=== PATIENT | female | born 2000 | race Hispanic/Latino ===

== ENCOUNTER 2025-03-08 21:51 | Emergency (ER) | payer BC ==
[~2025-03-08] VITALS: Ht 152.4 cm; Wt 67.6 kg
--- NOTE | 2025-03-08 22:38 | ERN ---
ED Note History of Present Illness Stated Complaint: ABD PAIN, LEFT LEG PAIN; VAGINAL BLEEDING, 6 WKS Chief Complaint: OB<20 weeks gest. Time Seen by MD: 22:03 Time Seen by Midlevel: 22:05 Dictation: 24-year-old female coming in with complaints of left lower quadrant pain for the last couple of days. Patient states she is six weeks . Denies having any vaginal pain vaginal bleeding or vaginal discharge. However patient states she has been seen 4 times already for the same complaint discharge her. Patient states she is concerned for having an ectopic . LMP states was in January 01, and states she is . Allergies: Coded Allergies: No Known Allergies (Unverified Allergy, Unknown, 03/08/25) Past Medical History Past Medical History: No Pertinent History Surgical History: None LMP: Jan 22, 2025 : 1 Para: 0 Aborts: 0 Review of System Dictation MDM: 24-year-old female coming in with complaints of left lower quadrant pain for the last couple of days. Patient states she is six weeks . Denies having any vaginal pain vaginal bleeding or vaginal discharge. However patient states she has been seen 4 times already for the same complaint discharge her. Patient states she is concerned for having an ectopic . LMP states was in January 01, and states she is . Differential diagnosis: Rectal , UTI, Rationale: Tests considered and ordered secondary to shared decision making include: Previous outside records reviewed: Old ER visits. Risk of complication and/or morbidity or mortality of patient management: None Medications-Per medication reconciliation Need for hospitalization: Patient does not meet criteria for hospitalization. Need for emergency major/minor surgery: No There are no social concerns with this patient. Prescription drug management Prescriptions will include symptomatic care Patient's prior external medical records from other ER visits were reviewed by me as indicated. Prior testing and results from previous visits were reviewed. Prior tests were taken into account with medical decision making and resource utilization, independent historian/historians were used to obtain complete medical history. I independently interpreted the test that were performed, results were reviewed by me and considered findings on radiology if ordered. Medical management and examination interpretation discussions were had by me with other qualified healthcare professionals as indicated for the patient's care. Review of Systems: was completed Initial Vital Sign VS Vital Signs Date Time Temp Pulse Resp B/P (MAP) Pulse Ox O2 Delivery O2 Flow Rate FiO2 03/08/25 21:53 99.3 78 20 123/78 97 Room Air 03/08/25 22:08 0 21 Physical Exam Dictation General: awake, alert, NAD Head/Face: Normocephalic, atraumatic Eyes: PERRL, EOMI, vision at baseline ENT: oral cavity clear, TMs clear, no signs of infection Neck: Trachea midline, supple, no nuchal rigidity Cardiovascular: RRR, normal S1/S2, No MRGs, no JVD Respiratory: CTAB, no respiratory distress, No rales or wheezes Abdomen: Soft, non-tender, non-distended, normal bowel sounds, no guarding or rebound. Skin: Warm, dry, normal turgor, no rash MS/Extremity: Pulses equal, no cyanosis, neurovascular intact, FROM Neuro: COAx4, GCS 15, strength 5/5, CN 2-12 intact, normal cerebellar exam, normal gait, Psych: Normal behavior, mood, and affect normal Results (Laboratory/Radiology) Laboratory/Radiology Laboratory Tests Test 03/08/25 22:21 03/08/25 22:44 White Blood Count 13.0 K/uL (4.8-10.8) H Red Blood Count 3.90 MIL/uL (4.00-5.50) L Hemoglobin 12.1 g/dL (12.0-16.0) Hematocrit 35.9 % (36-48) L Mean Corpuscular Volume 92.1 fL (79-99) Mean Corpuscular Hemoglobin 31.0 pg (27.0-33.0) Mean Corpuscular Hemoglobin Concent 33.7 g/dL (32.0-36.0) Red Cell Distribution Width 12.4 % (11.0-15.5) Platelet Count 445 K/uL (130-400) H Mean Platelet Volume 7.8 fL (7.5-10.5) Immature Granulocyte % (Auto) 0.5 % (0-1) Neutrophils (%) (Auto) 54.5 % (40.0-77.0) Lymphocytes (%) (Auto) 39.6 % (21.0-51.0) Monocytes (%) (Auto) 4.0 % (3.0-13.0) Eosinophils (%) (Auto) 0.8 % (0.0-8.0) Basophils (%) (Auto) 0.6 % (0.0-5.0) Neutrophils # (Auto) 7.1 K/uL (1.8-7.7) Lymphocytes # (Auto) 5.1 K/uL (1.0-4.8) H Monocytes # (Auto) 0.5 K/uL (0.1-1.0) Eosinophils # (Auto) 0.11 K/uL (0.00-0.70) Basophils # (Auto) 0.08 K/uL (0.00-0.20) Absolute Immature Granulocyte (auto 0.07 K/uL (0-1) Nucleated Red Blood Cells 0.0 % (0.0-0.19) Sodium Level 140 mmol/L (136-145) Potassium Level 3.3 mmol/L (3.5-5.1) L Chloride Level 103 mmol/L (101-111) Carbon Dioxide Level 25 mmol/L (21-32) Blood Urea Nitrogen 6 mg/dL (7-18) L Creatinine 0.7 mg/dL (0.5-1.0) Glomerular Filtration Rate Calc 125 mL/min (>90) Random Glucose 120 mg/dL (70-105) H Total Calcium 8.8 mg/dL (8.5-10.1) Human Chorionic Gonadotropin, Quant 1456 mIU/mL (0-5) H Urine Color COLORLESS (YELLOW) Urine Appearance CLEAR (CLEAR) Urine pH 6.0 (5.0-8.0) Urine Specific [place] 1.007 (1.001-1.031) Urine Protein NEGATIVE mg/dL (NEGATIVE) Urine Glucose (UA) NEGATIVE mg/dL (NEGATIVE) Urine Ketones NEGATIVE mg/dL (NEGATIVE) Urine Occult Blood SMALL (NEGATIVE) H Urine Nitrate NEGATIVE (NEGATIVE) Urine Bilirubin NEGATIVE mg/dL (NEGATIVE) Urine Urobilinogen 0.2 mg/dL (0.2-1.0) Urine Leukocyte Esterase NEGATIVE [place]upe/uL Urine RBC 0-1 /HPF (0-1) Urine WBC 2-5 /HPF (0-1) H Urine Squamous Epithelial Cells RARE /HPF (0-2) Urine Bacteria None /HPF (None Seen) Labs Reviewed?: Yes ED Course ED Course Orders Procedure Category Date Status Time Cbc With Differential LAB 03/08/25 Complete 22:11 Basic Metabolic Panel LAB 03/08/25 Complete 22:11 Hcg,Quantitative LAB 03/08/25 Complete 22:11 Urinalysis Profile LAB 03/08/25 Complete 22:11 Us Ob <14 Weeks US 03/08/25 Taken 22:11 0.9%Nacl 1000ml (Ns PHA 03/08/25 In Process 1000ml) 23:51 Morphine 4mg Syg PHA 03/09/25 In Process (Morphine 4mg Syg) 00:30 Current Medications Medications (Trade) Dose Ordered Sig/Alejandra Route PRN Reason Start Time Stop Time Status Last Admin Dose Admin Morphine Sulfate (morPHINE 4MG SYG) 2 mg ONCE ONCE IVP 03/09/25 00:30 03/09/25 00:31 03/09/25 00:24 Sodium Chloride 1,000 ml @ 100 mls/hr Q10H STAT IV 03/08/25 23:51 03/09/25 09:50 03/09/25 00:24 Vital Signs Date Time Temp Pulse Resp B/P (MAP) Pulse Ox O2 Delivery O2 Flow Rate FiO2 03/09/25 00:02 98.1 85 17 129/66 98 Room Air* 0 21 03/08/25 23:11 98.1 88 19 124/70 97 Room Air* 0 21 03/08/25 22:08 97.9 82 17 127/74 96 Room Air* 0 21 03/08/25 21:53 99.3 78 20 123/78 97 Room Air Medical Decision Making MDM MDM: 24-year-old female coming in with complaints of left lower quadrant pain for the last couple of days. Patient states she is six weeks . Denies having any vaginal pain vaginal bleeding or vaginal discharge. However patient states she has been seen 4 times already for the same complaint discharge her. Patient states she is concerned for having an ectopic . LMP states was in January 01, and states she is . WBC count is 13,Hemoglobin of took her hematocrit is 35. Thrombocythemia platelet count is 445. Chemistry shows mild hypokalemia at 3.3. Creatinine of 0.7. HCG quantitative is 1456. UA shows no evidence of urinary tract infection. Preliminary report of ultrasound showing a positive ectopic on the left with mild free fluid. 2350 I received the preliminary report of the ultrasound notified the charge nurse so we can initiate transfer. [address] Lacy ricks from [facility], reviewed lab work and images. Okay to transfer patient under his care for to mother baby unit. Differential diagnosis: Ectopic , urinary tract infection, Rationale: Tests considered and ordered secondary to shared decision making include: labs, ECG and radiology Previous outside records reviewed: Old ER visits. Risk of complication and/or morbidity or mortality of patient management: None Medications-Per medication reconciliation Need for hospitalization: Patient does meet criteria for hospitalization. Need for emergency major/minor surgery: No There are no social concerns with this patient. Prescription drug management Prescriptions will include symptomatic care Patient's prior external medical records from other ER visits were reviewed by me as indicated. Prior testing and results from previous visits were reviewed. Prior tests were taken into account with medical decision making and resource utilization, independent historian/historians were used to obtain complete medical history. I independently interpreted the test that were performed, results were reviewed by me and considered findings on radiology if ordered. Medical management and examination interpretation discussions were had by me with other qualified healthcare professionals as indicated for the patient's care. DX & DISP Disposition: Transfer Decision to Admit Date: Mar 09, 2025 Decision to Admit Time: 00:26 Departure Impression: Primary Impression: Ectopic Condition: Stable Time of Disposition: 00:26 I have reviewed the case, and I agree with, Diagnosis and Plan FARSHAD HERNANDEZ Mar 08, 2025 22:38
[2025-03-08 22:39] LABS: IMMATURE GRANULOCYTE ABSOLUTE 0.07 K/uL (0-1); NUCLEATED RED BLOOD CELLS 0.0 % (0.0-0.19); PLATELET COUNT (AUTO) 445 K/uL (130-400); RED BLOOD CELL COUNT(AUTO) 3.90 MIL/uL (4.00-5.50); RED CELL DISTRIBUTION WIDTH 12.4 % (11.0-15.5); WHITE BLOOD COUNT (AUTO) 13.0 K/uL (4.8-10.8)
[2025-03-08 22:51] LABS: CREATININE 0.7 mg/dL (0.5-1.0); GLOMERULAR FILTR. RATE CALC 125.0 mL/min (>90); GLUCOSE,RANDOM 120.0 mg/dL (70-105); SODIUM SERUM 140.0 mmol/L (136-145); UREA NITROGEN, BLOOD 6.0 mg/dL (7-18)
[2025-03-08 22:53] LABS: ADD UA MICROSCOPIC YES; APPEARANCE,URINE CLEAR (CLEAR); GLUCOSE, URINE (UA) NEGATIVE (NEGATIVE); LEUKOCYTE ESTERASE ,URINE NEGATIVE Leu/uL (NEGATIVE); NITRATE,URINE NEGATIVE (NEGATIVE); OCCULT BLOOD,URINE SMALL (NEGATIVE)
[2025-03-08 22:57] LABS: SQUAMOUS EPITHELIAL CELL,UR RARE /HPF (0-2)
[2025-03-08 23:19] LABS: HCG,QUANTITATIVE 1456.0 mIU/mL (0-5)
[2025-03-09] MEDS: 0.9%NACL 1000ML 1,000 ML IV STA (00:24)
--- NOTE | 2025-03-09 00:58 | NUR ---
REPORT GIVEN TO MARIO PINK RN ALL QUESTIONS ANSWERED AT THIS TIME. [facility] AWARE OF TRANSFER
[2025-03-09 01:10] VITALS: BP 113/83; PULSE 71; RESP 16; TEMP 98; O2SAT 98
--- NOTE | 2025-03-09 01:15 | NUR ---
[facility] AT BEDSIDE ALL QUESTIONS ANSWERED AT THIS TIME
[2025-03-09] MEDS: PoTASSium chloRIDE 20MEQ ER 20 MEQ ERTAB PO STA (01:34)
--- NOTE | 2025-03-09 01:46 | HMCIMG ---
EXAM: Ultrasound Obstetrical, Complete <14 Weeks. CLINICAL HISTORY: Left lower quadrant pain, rule out ectopic . TECHNIQUE: Transabdominal and transvaginal imaging of the maternal pelvis and a <14-week gestation with image documentation. COMPARISON: None provided. FINDINGS: Gestational Age: 6 weeks 3 days Uterus: Normal appearance. No myometrial mass identified. The uterus measures 8.1 x 5.1 x 6.3 cm. Endometrial thickness 2.6 cm. No intrauterine gestation. Cervix: Closed and unremarkable. Ovaries: The right ovary measures 3.6 x 2.2 x 2.4 cm. The left ovary measures 2.5 x 2.3 x 1.7 cm. A gestational sac is identified in the left adnexa measuring 0.89 cm, corresponding to 5 weeks 5 days. CRL measures 0.7 cm, corresponding to 6 weeks 4 days. No cardiac activity detected. Possible yolk sac. Free Fluid: None detected. IMPRESSION: There is a possibility of left ovarian ectopic . No intrauterine . /Iona
== END 2025-03-09 01:18 | disposition short-term general hospital (02) ==
LOC: EDH 21:51
DX: O00.90 Unspecified ectopic pregnancy without intrauterine pregnancy (principal); Z3A.01 Less than 8 weeks gestation of pregnancy
CPT/HCPCS: 99285; 76801; 80048; 84702; 85025; 81001; 36415; 96374; 96361; J7030; J2270